=== PATIENT | male | born 2000 | race African-American/Black ===

== ENCOUNTER 2023-02-10 11:47 | Inpatient (IN) | payer OTHER ==
[~2023-02-10 11:47] MED LIST: Iopamidol-370 76% 500 ML MDV (1 ML CHARGE) ONE
[2023-02-10] MEDS ORDERED: Boostrix 0.5 ML (Tdap) VIAL (>/=7 yrs of age) ONE (12:18)
[2023-02-10 12:35] LABS: #Eosinphils 0.1 thou/uL (0.0-0.7); #Monocytes 0.6 thou/uL (0.11-0.59); #Neutrophils 6.7 thou/uL (1.40-6.50); %Eosinophils 0.9 % (0.0-10.0); %Monocytes 6.6 % (0.0-10.0); RBC Distribution Width 12.5 % (11.5-14.5); White Blood Cell (WBC) Count 9.5 10x3/uL (4.8-10.8)
[2023-02-10 12:37] LABS: %Basophils 0.4 % (0.0-1.0); %Lymphocytes 20.8 % (21.0-51.0); Hemoglobin 13.5 g/dL (14.0-18.0); Mean Corpuscular HGB CONC 31.8 g/dL (32.0-36.0); Mean Corpuscular Hemoglobin 29.7 pg (27.0-31.0); Mean Corpuscular Volume 93.4 fl (78.0-98.0); Mean Platelet Volume 11.3 fL (7.4-10.4); Platelet Count 126 10x3/uL (130-400); Red Blood Cell (RBC) Count 4.54 mill/uL (4.70-6.10)
[2023-02-10] MEDS ORDERED: Morphine 4 MG/ML VIAL ONE (13:29)
[2023-02-10 13:31] LABS: ALT (SGPT) 49 U/L (8-55); AST (SGOT) 99 U/L (5-34); Alkaline Phosphatase 64 U/L (40-110); Anion Gap 11 mmol/L (10-20); Bilirubin, Total 0.3 mg/dL (0.2-1.2); Calc. Creatinine Clearance 0 mL/min (70-130); Calcium 9.1 mg/dL (7.8-10.44); Carbon Dioxide 26 mmol/L (22-29); Chloride 104 mmol/L (98-107); Estimated GFR 69; Globulin 3.3 g/dL (2.4-3.5); Glucose 132 mg/dL (70-105); Potassium 3.9 mmol/L (3.5-5.1); Protein, Total 7.3 g/dL (6.0-8.3); Sodium 137 mmol/L (136-145)
[2023-02-10 13:34] LABS: BUN (Urea Nitrogen) 15 mg/dL (8.9-20.6)
[2023-02-10] MEDS ORDERED: hydrALAZINE 20 MG/ML VIAL SLOW IVP PRN (13:45)
[2023-02-10] MEDS ORDERED: Ondansetron PF 4 MG/2 ML Vial IVP PRN (13:45)
[2023-02-10] MEDS ORDERED: Morphine 2 MG/ML VIAL SLOW IVP PRN (13:45)
[2023-02-10] MEDS ORDERED: Ipratropium/Albuterol 3 ML NEB NEB PRN (13:45)
[2023-02-10] MEDS ORDERED: Cyclobenzaprine 10 MG TAB PO PRN (13:49)
[2023-02-10 14:00] LABS: Acetaminophen Less than 10.0 mcg/mL (10.0-30.0); Alcohol Less than 10 mg/dL (Less than 10); Salicylate Less than 8.0 mg/dL (15.0-30.0)
[2023-02-10] MEDS: Acetaminophen 325 MG TAB PO SCH ×2 (17:46→20:24)
[2023-02-10] MEDS: Acetaminophen/Codeine 30-300mg Tablet PO SCH ×2 (17:46→20:23)
[2023-02-10] MEDS: Pregabalin 50 MG CAP PO SCH (20:22)
[2023-02-10] MEDS: Senokot S 8.6-50 MG TAB PO SCH (20:23)
[2023-02-10] MEDS: Famotidine/PF 20 mg/2ml Vial SLOW IVP SCH (20:24)
[2023-02-10] MEDS: Sodium Chloride 0.9% 1,000 ML IV SCH (23:05)
[2023-02-11] MEDS: Acetaminophen 325 MG TAB PO SCH ×3 (01:54→22:17)
[2023-02-11] MEDS: Acetaminophen/Codeine 30-300mg Tablet PO SCH ×6 (02:02→22:16)
[2023-02-11] MEDS: Sodium Chloride 0.9% 1,000 ML IV SCH ×2 (04:22→06:17)
[2023-02-11 06:03] LABS: #Eosinphils 0.1 thou/uL (0.0-0.7); #Monocytes 1.2 thou/uL (0.11-0.59); #Neutrophils 8.3 thou/uL (1.40-6.50); %Basophils 0.2 % (0.0-1.0); %Eosinophils 0.4 % (0.0-10.0); %Lymphocytes 13.2 % (21.0-51.0); %Monocytes 11.2 % (0.0-10.0); %Neutrophils 74.6 % (42.0-75.0); Hemoglobin 12.8 g/dL (14.0-18.0); Mean Corpuscular Hemoglobin 30.3 pg (27.0-31.0); Mean Corpuscular Volume 94.6 fl (78.0-98.0); Mean Platelet Volume 11.7 fL (7.4-10.4); RBC Distribution Width 12.8 % (11.5-14.5); Red Blood Cell (RBC) Count 4.23 mill/uL (4.70-6.10); White Blood Cell (WBC) Count 11.1 10x3/uL (4.8-10.8)
[2023-02-11 06:16] LABS: INR-International Normal Ratio 1.2; PTT 29.1 sec (22.9-36.1); Prothrombin Time 16.1 sec (12.0-14.7)
[2023-02-11 06:20] LABS: Platelet Count 117 10x3/uL (130-400)
[2023-02-11 06:48] LABS: Anion Gap 10 mmol/L (10-20); BUN (Urea Nitrogen) 8 mg/dL (8.9-20.6); Calc. Creatinine Clearance 126 mL/min (70-130); Calcium 8.6 mg/dL (7.8-10.44); Carbon Dioxide 24 mmol/L (22-29); Chloride 106 mmol/L (98-107); Estimated GFR 105; Glucose 101 mg/dL (70-105); Potassium 4.1 mmol/L (3.5-5.1); Sodium 136 mmol/L (136-145)
[2023-02-11] MEDS: Lidocaine 4% Patch TD SCH (09:13)
[2023-02-11] MEDS: Polyethylene Glycol 3350 17 GM Packet PO SCH (09:13)
[2023-02-11] MEDS: Pregabalin 50 MG CAP PO SCH ×2 (09:14→19:24)
[2023-02-11] MEDS: Famotidine/PF 20 mg/2ml Vial SLOW IVP SCH ×2 (09:14→19:28)
[2023-02-11] MEDS: Senokot S 8.6-50 MG TAB PO SCH ×2 (09:14→19:24)
[2023-02-11] MEDS ORDERED: Transdermal Patch Removal TOP SCH (21:00)
[2023-02-12] MEDS: Acetaminophen 325 MG TAB PO SCH ×2 (03:34→10:27)
[2023-02-12] MEDS: Acetaminophen/Codeine 30-300mg Tablet PO SCH ×2 (03:34→10:30)
[2023-02-12 08:11] VITALS: BP 135/79; TEMP 98.1
[2023-02-12] MEDS: Polyethylene Glycol 3350 17 GM Packet PO SCH (08:41)
[2023-02-12] MEDS: Senokot S 8.6-50 MG TAB PO SCH (08:42)
[2023-02-12] MEDS: Lidocaine 4% Patch TD SCH (08:42)
[2023-02-12] MEDS ORDERED: Pregabalin 25 MG CAP PO SCH (09:00)
[2023-02-12] MEDS ORDERED: Famotidine 20 MG TAB PO SCH (09:00)
== END 2023-02-12 11:05 | disposition home or self-care (01) | DRG 964 ==
LOC: ERS 11:47 → SURG B 13:49
PROVIDERS: ADMIT Internal Medicine; ATTEND Internal Medicine
DX: S06.6X1A Traumatic subarachnoid hemorrhage with loss of consciousness of 30 minutes or less, initial encounter (principal); S27.0XXA Traumatic pneumothorax, initial encounter; J98.11 Atelectasis; S12.600A Unspecified displaced fracture of seventh cervical vertebra, initial encounter for closed fracture; S22.41XA Multiple fractures of ribs, right side, initial encounter for closed fracture; S32.039A Unspecified fracture of third lumbar vertebra, initial encounter for closed fracture; S32.049A Unspecified fracture of fourth lumbar vertebra, initial encounter for closed fracture; S27.322A Contusion of lung, bilateral, initial encounter; V49.40XA Driver injured in collision with unspecified motor vehicles in traffic accident, initial encounter
CPT/HCPCS: 36415; 70450; 70496; 70498; 71045; 71260; 72125; 74177; 80048; 80053; 80307; 85025; 85610; 85652; 85730; 90471; 90715; 93005; 96374; G0390; J2270; Q9967; S0028